=== PATIENT | female | born 1990 | race Caucasian/White ===

== ENCOUNTER 2016-12-08 18:18 | Inpatient (IN) | payer BC ==
[~2016-12-08] VITALS: Ht 167.6 cm
--- NOTE | ~2016-12-08 | OR ---
PATIENT'S NAME: JARED KELLEY [facility] AGE: 26 Y [address] 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 Term intrauterine at 39 weeks gestation. 2. Spontaneous rupture of membranes with clear fluid at home. 3. Epidural anesthesia. POSTOPERATIVE DIAGNOSES: 1. Term intrauterine at 39 weeks gestation. 2. Spontaneous rupture of membranes with clear fluid at home. 3. Epidural anesthesia. 4. Delivery of viable male infant, weighing 7 pounds 10 ounces with Apgars of 8 and 9 at 1 and 5 minutes, respectively at 2254 on 12/08. 5. Manual extraction of placenta. DESCRIPTION OF PROCEDURE: This 26-year-old, 2, para 1-0-0-1 who is at 39 weeks gestation presented to Labor and Delivery with spontaneous rupture of membranes with clear fluid at home. She was GBS negative. I just seen her today in the clinic for a recheck as she had 2+ protein on her urine on Saturday and came back today had 1+ with a blood pressure of 120/88. CBC and CMP were checked and those labs were all stable. We are actually going to see her back on Saturday or Saturday of next week, however she ruptured at home. She otherwise had an uncomplicated . She is an A positive antibody screen negative, GBS negative female, who had her care started at 9- 1/2 weeks gestation. The patient went to complete without difficulty. Second stage of labor did have initially some decelerations with a heartbeat and decreased heart rates into the 80s and 90s. Actually, got quite a bit better with pushing and then once we started pushing the heart rate was dramatically better anywhere from the 90s to 140s to 150s. She was able to bring head down initially in URSULA position that eventually went to a straight OA position. The head delivered and rotated to the maternal left, the anterior posterior shoulders were then delivered, and the remainder of the was delivered without difficulty. Baby did have a spontaneous cry. Apgars were 8 and 9 at 1 and 5 minutes respectively. The cord was doubly clamped, cut by the father and placed on maternal abdomen. We felt like he was doing well at that time to go going to warmer. He was doing well at this time. His weight is 7 PATIENT'S NAME: JARED KELLEY [facility] AGE: 26 Y [address] ROOM: [place] [id number] LOCATION: [facility] ADMIT DATE: 12/08/2016 OR/Procedure Report DISCHARGE DATE: FAMILY PHYSICIAN: Zaheer Woodruff MD ATTENDING PHYSICIAN: Zaheer Woodruff pounds 10 ounces with a length of 20 inches. Apgars were 8 and 9 at 1 and 5 minutes respectively. Had active at delivery of the placenta. However, the membrane starting to tear, the cord did end up tearing complete about the placenta. The placenta was then easily manually extracted from the uterus with nice the uterus. The placenta was inspected very carefully and it was found to be intact without missing cotyledons. There was no excessive trauma with dyspnea. No extraction. Estimated blood loss was 200 mL. Both mom and infant doing well at this time. Both sponge counts and needle counts were correct. ZAHEER WOODRUFF MD TAB/modl /[id number] d: 12/09/16 0207 t: 12/27/16 1444, OPERATIVE SUMMARY
[~2016-12-08 18:18] MED LIST: DERMOPLAST SPRA56 GM TOP; IBUPROFEN400 MG PO; PHAZYME180 MG PO; PRENATAL 1+1)(P1 TAB PO
[2016-12-08 19:29] LABS: BASOPHIL % 0.2 %; EOSINOPHIL # 0.1 K/uL (0.0-0.5); EOSINOPHIL % 0.8 %; HEMATOCRIT 34.6 % (33.0-46.0); IMMATURE GRANULOCYTE # 0.1 K/uL (0.0-0.3); IMMATURE GRANULOCYTE % 1.7 %; LYMPHOCYTE # 1.7 K/uL (0.8-4.0); LYMPHOCYTE % 20.4 %; MCH 24.7 pg (27.0-34.0); MCHC 31.8 gm/dL (32.0-36.5); MCV 77.8 fl (83.0-98.0); MONOCYTE # 0.8 K/uL (0.0-1.0); MPV 9.9 fl (9.4-12.4); NEUTROPHIL # (ANC) 5.6 K/uL (1.8-7.8); NEUTROPHIL % 66.9 %; NRBC % 0 /100WBC (0-0.00); PLATELET COUNT 201 K/uL (150-450); RBC 4.45 M/uL (3.50-5.00); RDW-CV 15.2 % (11.9-14.6); WBC 8.4 K/uL (4.0-11.0)
[2016-12-08 19:31] LABS: BILIRUBIN URINE NEGATIVE (NEGATIVE); BLOOD URINE 250 /UL (NEGATIVE); COLOR URINE YELLOW (YELLOW); GLUCOSE URINE 250 mg/dL (NEGATIVE); KETONE URINE 5 mg/dL (NEGATIVE); LEUKOCYTES URINE 25 /UL (NEGATIVE); NITRITE URINE NEGATIVE (NEGATIVE); PROTEIN URINE 100 mg/dL (NEGATIVE); SPEC GRAVITY URINE 1.025 (1.003-1.035); TURBIDITY URINE 3+ (CLEAR); UROBILINOGEN URINE NORMAL (NORMAL)
[2016-12-08 19:45] LABS: ALBUMIN 2.2 gm/dL (3.5-5.0); ALK PHOS 182 IU/L (33-138); ALT 19 IU/L (12-78); ANION GAP 13.1 (10.0-19.0); AST 21 IU/L (10-40); BLOOD UREA NITROGEN 9 mg/dL (6-24); CALCIUM 8.3 mg/dL (8.5-10.5); CHLORIDE 108 mMol/L (96-110); CO2 21 mMol/L (22-32); CREATININE 0.7 mg/dL (0.5-1.1); POTASSIUM 4.1 mMol/L (3.7-5.1); SODIUM 138 mMol/L (135-145); TOTAL BILIRUBIN 0.3 mg/dL (0.0-1.5); TOTAL PROTEIN 6.4 g/dL (6.0-8.4)
[2016-12-08 19:48] LABS: BACTERIA URINE MANY (NEGATIVE); MUCUS URINE 3+ (NEGATIVE); RBC URINE FULL FIELD #/HPF (NEGATIVE)
[2016-12-08] MEDS ORDERED: PRENATAL 1+1)(P1 TAB PO (20:16)
[2016-12-08] MEDS ORDERED: PREVACID15 MG (21:37)
[2016-12-08 23:26] LABS: PCO2 57 mmHg (35-45)
[2016-12-08 23:27] LABS: BICARBONATE 22.7 mmol/L (18.0-23.0); PO2 25 mmHg (80-90)
[2016-12-09 05:54] LABS: BASOPHIL # 0.1 K/uL (0.0-0.2); BASOPHIL % 0.3 %; EOSINOPHIL # 0.1 K/uL (0.0-0.5); EOSINOPHIL % 0.4 %; HEMATOCRIT 35.3 % (33.0-46.0); HEMOGLOBIN 11.3 g/dL (11.0-15.0); IMMATURE GRANULOCYTE # 0.2 K/uL (0.0-0.3); IMMATURE GRANULOCYTE % 0.9 %; LYMPHOCYTE # 2.1 K/uL (0.8-4.0); LYMPHOCYTE % 12.5 %; MCH 24.9 pg (27.0-34.0); MCV 77.8 fl (83.0-98.0); MONOCYTE # 1.3 K/uL (0.0-1.0); MONOCYTE % 7.7 %; MPV 9.7 fl (9.4-12.4); NEUTROPHIL # (ANC) 13.2 K/uL (1.8-7.8); NEUTROPHIL % 78.2 %; NRBC % 0 /100WBC (0-0.00); PLATELET COUNT 184 K/uL (150-450); RBC 4.54 M/uL (3.50-5.00); RDW-CV 14.9 % (11.9-14.6)
[2016-12-09 05:56] LABS: WBC 16.9 K/uL (4.0-11.0)
[2016-12-09] MEDS ORDERED: SURFAK240 MG PO (08:36)
[2016-12-09] MEDS ORDERED: MOTRIN800 MG PO (08:37)
[2016-12-09] MEDS ORDERED: PERCOCET 5-3251 EACH PO (08:38)
[2016-12-09] MEDS ORDERED: AUGMENTIN250 MG PO (08:40)
== END 2016-12-09 08:55 | disposition disaster alternative care site (69) | DRG 775 ==
LOC: GOBM 18:18 → GOBS 18:19 → GOBM 18:20 → GOBS 18:20 → GOBM 12-15 13:29
PROVIDERS: Family Medicine; ADMIT Family Medicine
PROC: 10E0XZZ Delivery of Products of Conception, External Approach (ICD-10-PCS; principal; 2016-12-08)
DX: O76 Abnormality in fetal heart rate and rhythm complicating labor and delivery (principal); Z37.0 Single live birth; Z3A.39 39 weeks gestation of pregnancy
CPT/HCPCS: J0690; J2001; J2590; J3010; J7050; J7120